=== PATIENT | female | born 1990 | race Caucasian/White ===

== ENCOUNTER 2022-03-26 12:11 | Emergency (ER) | payer MEDICAID, OTHER ==
[2022-03-26 12:21] VITALS: RESP 20; TEMP 98.1
--- NOTE | 2022-03-26 13:23 | XR ---
EXAMINATION TYPE: XR cervical spine comp DATE OF EXAM: 03/26/2022 COMPARISON: None HISTORY: Fall, pain TECHNIQUE: Cervical spine is examined in 5 projections. FINDINGS: Prevertebral space is normal. Posterior spinal lamellar line is intact. Vertebral body heig hts and disc heights are preserved. The odontoid is normal. Foramen are patent. Shunt catheter appear s to be intact through the visualized portion. Cervical thoracic junction appears normal. IMPRESSION: 1. Unremarkable cervical spine
--- NOTE | 2022-03-26 13:27 | XR ---
EXAMINATION TYPE: XR wrist complete LT DATE OF EXAM: 03/26/2022 COMPARISON: None HISTORY: Fall onto left arm pain from neck to fingers TECHNIQUE: 4 view left wrist FINDINGS: No acute fracture or dislocation is evident. Joint spaces are preserved. Soft tissues appea r normal. If there is pain at the anatomic snuffbox, nuclear medicine bone scan could be performed for addition al evaluation. Follow up exams can be performed 7-10 days acute trauma for continued pain. IMPRESSION: 1. No acute osseous abnormality left wrist
--- NOTE | 2022-03-26 13:28 | XR ---
EXAMINATION TYPE: XR forearm LT DATE OF EXAM: 03/26/2022 COMPARISON: None HISTORY: Fall onto left arm, pain from neck down to fingers TECHNIQUE: 2V left forearm FINDINGS: There is a lucency within the radial head. Correlate for radial head fracture. No additional areas suspicious for fractures evident. Soft tissues appear normal. IMPRESSION: 1. Suspected radial head fracture. Clinical correlation and follow-up is recommended.
--- NOTE | 2022-03-26 13:28 | XR ---
EXAMINATION TYPE: XR shoulder complete LT DATE OF EXAM: 03/26/2022 COMPARISON: NONE HISTORY: Pain, fall, hit by horse TECHNIQUE: Shoulder examined in 3 projections FINDINGS: The humeral head articulates with the glenoid. The acromio-clavicular junction is normal. No acute fractures or dislocations are evident. A follow up study can be performed 7-10 days from acute trauma for continued pain. IMPRESSION: 1. Acute osseous abnormality left shoulder.
--- NOTE | 2022-03-26 13:29 | XR ---
EXAMINATION TYPE: XR humerus LT DATE OF EXAM: 03/26/2022 COMPARISON: None HISTORY: Fall, pain in left arm TECHNIQUE: 2 view left humerus FINDINGS: No acute fracture or dislocation is evident. Suspected radial head fracture is not identifi ed on this image. Follow up studies can be performed 7-10 days would acute trauma for continued pain. IMPRESSION: 1. Normal-appearing left humerus
--- NOTE | 2022-03-26 14:38 | ED ---
Upper Extremity HPI - General Chief Complaint: Extremity Injury, Upper Stated Complaint: lt arm pain Time Seen by Provider: 03/26/22 12:37 Source: patient Mode of arrival: ambulatory Limitations: no limitations - History of Present Illness Initial Comments: Patient is a 31-year-old female presenting with chief complaint of left arm pain. Patient was hit by the chest of a horse and fell onto her left arm. She is complaining of pain along the entire length of the arm. She did not hit her head, no loss of consciousness, no use of blood thinners. She admits to pain with range of motion. She denies any numbness, tingling, weakness. - Related Data Allergies Allergy/AdvReac Type Severity Reaction Status Date / Time gabapentin Allergy Rash/Hives Verified 03/26/22 12:21 Review of Systems ROS Statement: Those systems with pertinent positive or pertinent negative responses have been documented in the HPI. ROS Other: All systems not noted in ROS Statement are negative. Past Medical History Additional Past Medical History / Comment(s): Hydrocephalus History of Any Multi-Drug Resistant Organisms: None Reported Past Surgical History: No Surgical Hx Reported Past Psychological History: No Psychological Hx Reported Smoking Status: Never smoker Past Alcohol Use History: None Reported Past Drug Use History: None Reported General Exam Limitations: no limitations General appearance: alert, in no apparent distress Head exam: Present: atraumatic, normocephalic, normal inspection Eye exam: Present: normal appearance, EOMI. Absent: scleral icterus, periorbital swelling Neck exam: Present: normal inspection Extremities exam: Absent: full ROM (Left arm limited range of motion secondary to pain) Left General: Present: normal inspection Shoulder Exam: Present: normal inspection, tenderness. Absent: swelling Upper Arm exam: Present: normal inspection, tenderness Elbow exam: Present: normal inspection, tenderness Forearm Wrist exam: Present: normal inspection, tenderness Hand Wrist exam: Present: normal inspection, tenderness Neurological exam: Present: alert, oriented X3, CN II-XII intact Psychiatric exam: Present: normal affect, normal mood Skin exam: Present: warm, dry, intact, normal color. Absent: rash Course Vital Signs 03/26/22 03/26/22 12:19 14:51 Temperature 98.1 F Pulse Rate 116 H 88 Respiratory 20 20 Rate Blood Pressure 166/93 144/78 O2 Sat by Pulse 99 99 Oximetry Medical Decision Making - Medical Decision Making Patient is a 31-year-old female presenting with chief complaint of left arm pain. She fell onto the arm today, is complaining of pain with range of motion. On examination there is tenderness to palpation. There is tenderness along the anatomical snuffbox. She has full sensation and pulses are intact. X-ray shows fracture of the radial head. Patient is placed in a thumb spica splint for potential scaphoid fracture, she is given an arm sling for radial head fracture. Instructed to follow-up with orthopedics in one to 2 days. Report back to ER if any new or worsening symptoms. Discussed return parameters and answered all questions. Patient conveyed verbal understanding and agreed to the plan. I discussed this case with my attending Dr. Terrell. Disposition Clinical Impression: Radial head fracture, Tenderness of anatomical snuffbox Disposition: HOME SELF-CARE Condition: Good Instructions (If sedation given, give patient instructions): Elbow Fracture (ED) Additional Instructions: Follow-up with PCP and orthopedics in one to 2 days. Report back to ER with any new or worsening symptoms. Take Motrin and Tylenol as needed for fever and pain control. Rest, ice, elevate for symptomatic management. Continue to use arm sling and leave the splint on until otherwise instructed by orthopedics. Is patient prescribed a controlled substance at d/c from ED?: No Referrals: Anupama Bull DO [Primary Care Provider] - 1-2 days Lucio Lance MD [STAFF PHYSICIAN] - 1-2 days Time of Disposition: 14:40
[2022-03-26 14:52] VITALS: BP 144/78; PULSE 88
== END 2022-03-26 14:52 | disposition home or self-care (01) ==
LOC: EC 12:11
DX: S52.121A Displaced fracture of head of right radius, initial encounter for closed fracture (principal); M25.531 Pain in right wrist; Z88.8 Allergy status to other drugs, medicaments and biological substances; W55.12XA Struck by horse, initial encounter
CPT/HCPCS: 72050; 99283

== ENCOUNTER 2024-08-19 06:02 | Day surgery (SDC) | payer MEDICAID ==
[2024-08-15 12:07] VITALS: BMI 47.2
[2024-08-19] MEDS: SODIUM CHLORIDE 0.9% 1,000 ML IV SCH (06:26)
[2024-08-19 06:47] VITALS: BP 135/88; PULSE 98; RESP 16; TEMP 97.3
[2024-08-19] MEDS: IV FLUID CONTINUATION 1,000 ML IV ONE (07:32)
--- NOTE | 2024-08-19 14:52 | P.EPPROC ---
- EP Procedure Note Electrophysiology Procedure Note: Diagnosis Recurrent presyncope Twelve-lead EKG shows sinus rhythm normal [place] narrow QRS normal QT interval Tilt table test per protocol Baseline blood pressure 132/82 mmHg, baseline heart rate 85 beats a minute Patient was tilted upright in angle of 70 degrees per protocol No significant change in heart rate or blood pressure She was laid supine the end of the procedure Impression normal twelve-lead EKG No evidence for neurocardiogenic syncope
== END 2024-08-19 08:40 | disposition home or self-care (01) ==
LOC: CATHEP 06:02
PROVIDERS: ATTEND Internal Medicine Clinical Cardiac Electrophysiology
DX: I47.11 Inappropriate sinus tachycardia, so stated (principal); R55 Syncope and collapse; I10 Essential (primary) hypertension; Z82.49 Family history of ischemic heart disease and other diseases of the circulatory system; Z88.9 Allergy status to unspecified drugs, medicaments and biological substances; Z79.899 Other long term (current) drug therapy
CPT/HCPCS: 81025; 93660